=== PATIENT | male | born 1990 | race Caucasian/White ===

== ENCOUNTER 2019-09-13 04:46 | Emergency (ER) | payer MEDICAID, OTHER ==
[~2019-09-13] VITALS: Ht 185.4 cm; Wt 106.8 kg
[2019-09-13 04:49] VITALS: BP 147/62
[2019-09-13] MEDS ORDERED: famotidine 20mg tablet PO ONE (04:55)
[2019-09-13] MEDS ORDERED: ondansetron 4mg rapidly disintigrating tab PO ONE (04:55)
[2019-09-13] MEDS ORDERED: mag hydrox/Alum hydrox/simeth 30ml oral suspension PO ONE ×2 (04:55→05:20)
[2019-09-13] MEDS ORDERED: LIDOcaine Viscous 15ml cup MM ONE (04:55)
[2019-09-13] MEDS ORDERED: pantoprazole 40mg Tablet.DR PO ONE (05:20)
[2019-09-13] MEDS ORDERED: PANT-47 PO (05:20)
[2019-09-13] MEDS ORDERED: sucralfate 1gm/10ml UD suspension PO ONE (05:20)
== END 2019-09-13 05:38 | disposition home or self-care (01) ==
LOC: ER 04:46
DX: K29.00 Acute gastritis without bleeding (principal); Z79.899 Other long term (current) drug therapy
CPT/HCPCS: 93005; 99284

== ENCOUNTER 2020-04-27 21:11 | Emergency (ER) | payer MEDICAID, OTHER ==
[~2020-04-27 21:11] MED LIST: PANT-47 PO
== END 2020-04-27 22:23 | disposition left against medical advice (07) ==
LOC: ER 21:11
DX: R10.9 Unspecified abdominal pain (principal); Z53.21 Procedure and treatment not carried out due to patient leaving prior to being seen by health care provider

== ENCOUNTER 2020-07-22 19:56 | Emergency (ER) | payer MEDICAID, OTHER ==
[~2020-07-22] VITALS: Ht 185.4 cm; Wt 100.0 kg
[2020-07-22 20:07] VITALS: BP 124/82
[2020-07-22] MEDS ORDERED: mag hydrox/Alum hydrox/simeth 30ml oral suspension PO ONE (21:15)
[2020-07-22] MEDS ORDERED: LIDOcaine Viscous 15ml cup MM PRN (21:15)
[2020-07-22] MEDS ORDERED: ondansetron 4mg/5ml UD cup PO ONE (21:15)
[2020-07-22] MEDS ORDERED: ondansetron 4mg rapidly disintigrating tab PO ONE (22:00)
== END 2020-07-22 22:57 | disposition home or self-care (01) ==
LOC: ER 19:56
DX: R10.13 Epigastric pain (principal); K21.9 Gastro-esophageal reflux disease without esophagitis; Z79.899 Other long term (current) drug therapy
CPT/HCPCS: 71045; 99283; 99284

== ENCOUNTER 2021-05-24 00:31 | Emergency (ER) | payer MEDICAID ==
[~2021-05-24] VITALS: Ht 185.4 cm; Wt 75.0 kg
[2021-05-24] MEDS ORDERED: ondansetron/PF 4mg/2ml inj IV ONE ×2 (01:00→01:40)
[2021-05-24] MEDS ORDERED: sucralfate 1 gm tablet PO ONE (01:00)
[2021-05-24] MEDS ORDERED: LIDOcaine Viscous 15ml cup MM ONE (01:15)
[2021-05-24] MEDS ORDERED: mag hydrox/Alum hydrox/simeth 30ml oral suspension PO ONE (01:15)
[2021-05-24 01:33] LABS: BASOPHILS % (AUTO) 0.4 % (0-1); EOSINOPHILS # (AUTO) 0.1 X10'3 (0-0.9); EOSINOPHILS % (AUTO) 1.1 % (0-6); HEMATOCRIT 40.2 % (42.0-52.0); LYMPHOCYTES # (AUTO) 1.9 X10'3 (1.1-4.8); LYMPHOCYTES % (AUTO) 21.8 % (21-51); MEAN CORPUSCULAR HEMOGLOBIN 29.1 PG (27.0-31.0); MEAN CORPUSCULAR HGB CONC 34.8 g/dL (33.0-36.5); MEAN CORPUSCULAR VOLUME 83.7 FL (78-98); MEAN PLATELET VOLUME 9.5 FL (7.4-10.4); MONOCYTES # (AUTO) 0.8 X10'3 (0-0.9); MONOCYTES % (AUTO) 8.9 % (2-12); NEUTROPHILS % (AUTO) 67.8 % (42-75); PLATELET COUNT 212 X10'3 (140-440); RED BLOOD COUNT 4.81 X10'6 (4.70-6.10); RED CELL DISTRIBUTION WIDTH 12.4 % (11.5-14.5); WHITE BLOOD COUNT 8.8 X10'3 (4.5-11.0)
[2021-05-24] MEDS ORDERED: morphine 4 MG/ML inj SYRINge IV ONE (01:40)
[2021-05-24 01:48] LABS: ALANINE AMINOTRANSFERASE 24 U/L (12-78); ALBUMIN 4.1 G/DL (3.4-5.0); ALBUMIN/GLOBULIN RATIO 1.3 (1.1-1.5); ALKALINE PHOSPHATASE 68 IU/L (46-116); ANION GAP 9 (8-16); ASPARTATE AMINO TRANSFERASE 16 U/L (10-37); BILIRUBIN,DIRECT 0.1 MG/DL (0-0.3); BILIRUBIN,TOTAL 0.4 MG/DL (0.1-1.0); BLOOD UREA NITROGEN 18 MG/DL (7-18); BUN/CREATININE RATIO 21.4 (5.4-32.0); CALCIUM 8.5 MG/DL (8.5-10.1); CHLORIDE 106 MMOL/L (99-107); CREATININE 0.84 MG/DL (0.60-1.10); GLUCOSE 112 MG/DL (70-104); LIPASE 301 U/L (73-393); POTASSIUM 3.4 MMOL/L (3.5-5.1); SODIUM 144 MMOL/L (135-145); TOTAL CARBON DIOXIDE 29.3 MMOL/L (24-32); TOTAL PROTEIN 7.3 G/DL (6.4-8.2); eGFR > 90 ML/MIN
[2021-05-24] MEDS ORDERED: HYDR-3965 PO (02:21)
[2021-05-24] MEDS ORDERED: ketorolac trometh inj. 60 MG/2 ML VIAL IM ONE (02:45)
[2021-05-24] MEDS ORDERED: ketorolac tromethamine 15mg/ml inj. IM ONE (02:55)
[2021-05-24 03:03] VITALS: BP 117/57
== END 2021-05-24 03:04 | disposition home or self-care (01) ==
LOC: ER 00:31
DX: K80.80 Other cholelithiasis without obstruction (principal); R10.10 Upper abdominal pain, unspecified; R10.13 Epigastric pain; R07.89 Other chest pain; Z79.899 Other long term (current) drug therapy
CPT/HCPCS: 36415; 74176; 80048; 80076; 83690; 85025; 93005; 96372; 96374; 96375; 96376; 99285; J1885; J2270; J2405

== ENCOUNTER 2021-12-25 19:01 | Emergency (ER) | payer MEDICAID ==
[~2021-12-25] VITALS: Ht 185.4 cm; Wt 77.3 kg
[2021-12-25 19:55] LABS: BASOPHILS # (AUTO) 0.1 X10'3 (0-0.2); BASOPHILS % (AUTO) 0.7 % (0-1); EOSINOPHILS # (AUTO) 0.2 X10'3 (0-0.9); HEMATOCRIT 45.9 % (42.0-52.0); HEMOGLOBIN 15.5 g/dl (14.0-17.9); LYMPHOCYTES % (AUTO) 26.2 % (21-51); MEAN CORPUSCULAR HGB CONC 33.7 g/dL (33.0-36.5); MEAN CORPUSCULAR VOLUME 83.1 FL (78-98); MEAN PLATELET VOLUME 9.6 FL (7.4-10.4); MONOCYTES # (AUTO) 0.6 X10'3 (0-0.9); NEUTROPHILS # (AUTO) 4.8 X10'3 (1.8-7.7); NEUTROPHILS % (AUTO) 62.1 % (42-75); PLATELET COUNT 245 X10'3 (140-440); RED BLOOD COUNT 5.52 X10'6 (4.70-6.10); WHITE BLOOD COUNT 7.7 X10'3 (4.5-11.0)
[2021-12-25 20:19] LABS: ALANINE AMINOTRANSFERASE 31 U/L (12-78); ALBUMIN 4.3 G/DL (3.4-5.0); ALBUMIN/GLOBULIN RATIO 1.3 (1.1-1.5); ALKALINE PHOSPHATASE 82 IU/L (46-116); ANION GAP 10 (8-16); ASPARTATE AMINO TRANSFERASE 32 U/L (10-37); BILIRUBIN,TOTAL 0.6 MG/DL (0.1-1.0); BLOOD UREA NITROGEN 18 MG/DL (7-18); BUN/CREATININE RATIO 19.8 (5.4-32.0); CALCIUM 9.2 MG/DL (8.5-10.1); CHLORIDE 105 MMOL/L (99-107); CREATININE 0.91 MG/DL (0.60-1.10); GLUCOSE 110 MG/DL (70-104); SODIUM 146 MMOL/L (135-145); TOTAL CARBON DIOXIDE 31.1 MMOL/L (24-32); TOTAL PROTEIN 7.7 G/DL (6.4-8.2); eGFR > 90 ML/MIN
--- NOTE | 2021-12-25 23:13 | NUR ---
PT TOOK NORCO PRIOR TO COMING TO ER AND STATES IT HAS BROUGHT HIS PAIN DOWN FROM A 10 TO A 7. PT STATES HE TOOK IT ABOUT 4 HOURS AGO
[2021-12-26] MEDS ORDERED: LIDOcaine Viscous 15ml cup MM ONE (00:45)
[2021-12-26] MEDS ORDERED: famotidine 20mg tablet PO ONE (00:45)
[2021-12-26] MEDS ORDERED: mag hydrox/Alum hydrox/simeth 30ml oral suspension PO ONE (00:45)
[2021-12-26 01:52] VITALS: BP 105/62
== END 2021-12-26 02:19 | disposition home or self-care (01) ==
LOC: ER 19:02
DX: K21.9 Gastro-esophageal reflux disease without esophagitis (principal); Z79.899 Other long term (current) drug therapy
CPT/HCPCS: 36415; 71045; 80053; 83880; 84484; 85025; 93005; 99285

== ENCOUNTER 2022-11-08 17:47 | Inpatient (IN) | payer MEDICAID ==
[~2022-11-08] VITALS: Ht 185.4 cm; Wt 80.0 kg
[2022-11-08 18:21] LABS: BASOPHILS % (AUTO) 0.2 % (0-1); EOSINOPHILS % (AUTO) 0.1 % (0-6); HEMATOCRIT 39.5 % (42.0-52.0); HEMOGLOBIN 12.9 g/dl (14.0-17.9); LYMPHOCYTES # (AUTO) 0.5 X10'3 (1.1-4.8); LYMPHOCYTES % (AUTO) 4.7 % (21-51); MEAN CORPUSCULAR HGB CONC 32.7 g/dL (33.0-36.5); MEAN CORPUSCULAR VOLUME 79.6 FL (78-98); MEAN PLATELET VOLUME 7.9 FL (7.4-10.4); MONOCYTES # (AUTO) 0.5 X10'3 (0-0.9); MONOCYTES % (AUTO) 4.7 % (2-12); NEUTROPHILS # (AUTO) 9.2 X10'3 (1.8-7.7); NEUTROPHILS % (AUTO) 90.3 % (42-75); PLATELET COUNT 358 X10'3 (140-440); RED BLOOD COUNT 4.96 X10'6 (4.70-6.10); RED CELL DISTRIBUTION WIDTH 13.5 % (11.5-14.5); WHITE BLOOD COUNT 10.2 X10'3 (4.5-11.0)
[2022-11-08 18:32] LABS: ALANINE AMINOTRANSFERASE 17 U/L (12-78); ALBUMIN 3.3 G/DL (3.4-5.0); ALBUMIN/GLOBULIN RATIO 0.9 (1.1-1.5); ALKALINE PHOSPHATASE 78 IU/L (46-116); ANION GAP 6 (8-16); ASPARTATE AMINO TRANSFERASE 12 U/L (10-37); BILIRUBIN,TOTAL 0.3 MG/DL (0.1-1.0); BLOOD UREA NITROGEN 10 MG/DL (7-18); BUN/CREATININE RATIO 11.6 (10.0-20.0); CALCIUM 8.9 MG/DL (8.5-10.1); CHLORIDE 103 MMOL/L (99-107); CREATININE 0.86 MG/DL (0.60-1.10); GLUCOSE 125 MG/DL (70-104); LIPASE 135 U/L (73-393); POTASSIUM 4.3 MMOL/L (3.5-5.1); SODIUM 139 MMOL/L (135-145); TOTAL CARBON DIOXIDE 30.1 MMOL/L (24-32); eGFR > 90 ML/MIN
[2022-11-08] MEDS ORDERED: ondansetron/PF 4mg/2ml inj IV ONE (18:50)
[2022-11-08] MEDS ORDERED: normal saline 1000ml 1,000 ML IV ONE (18:50)
[2022-11-08] MEDS ORDERED: morphine 4 MG/ML inj SYRINge IV ONE (18:50)
--- NOTE | 2022-11-08 19:15 | NUR ---
US to pt bedside at this time
[2022-11-08 19:35] LABS: CLARITY,URINE CLEAR (Clear); COLOR,URINE YELLOW (Yellow); GLUCOSE, URINE NEGATIVE (Neg); KETONES,URINE 15 mg/dl (Neg); LEUKOCYTE ESTERASE ,URINE NEGATIVE (Neg); NITRITES, URINE NEGATIVE (Neg); OCCULT BLOOD,URINE NEGATIVE (Neg); PROTEIN,URINE NEGATIVE (Neg); UROBILINOGEN,URINE 0.2 E.U/dL (0.2-1.0)
[2022-11-08 19:41] LABS: UA COLLECTION TYPE CLN CATCH MIDSTREAM
[2022-11-08] MEDS ORDERED: morphine 4 MG/ML inj SYRINge IV PRN (19:55)
[2022-11-08] MEDS ORDERED: piperacillin/tazo 3.375gm/50ml 50 ML IV ONE (19:55)
[2022-11-08] MEDS ORDERED: metoclopramide 5 mg/ml inj IV PRN (20:20)
[2022-11-08] MEDS ORDERED: HYDROcodone/acetaminophen 5mg/325mg tablet PO PRN (20:20)
[2022-11-08] MEDS ORDERED: magnesium hydroxide 30ml (MOM) UD suspension PO PRN (20:20)
[2022-11-08] MEDS ORDERED: ondansetron/PF 4mg/2ml inj IV PRN (20:20)
[2022-11-08] MEDS ORDERED: acetaminophen 325mg tablet PO PRN ×2 (20:20)
[2022-11-08] MEDS ORDERED: morphine 2 MG/ML inj. syringe IV PRN ×2 (20:20)
[2022-11-08] MEDS ORDERED: mag hydrox/Alum hydrox/simeth 30ml oral suspension PO PRN (20:20)
[2022-11-08] MEDS ORDERED: HYDROcodone/acetaminophen 10/325mg tab PO PRN (20:20)
[2022-11-08] MEDS ORDERED: NO HOME MEDS (20:26)
[2022-11-08 20:30] VITALS: BP 125/60
--- NOTE | 2022-11-08 21:18 | NUR ---
Received report from Cristin MARTIN RN. Patient to follow shortly.
--- NOTE | 2022-11-08 21:25 | NUR ---
Patient arrived to floor via gurney. A&O and in no distress. Accompanied by his Mom.
[2022-11-08 21:30] VITALS: BP 125/60
[2022-11-09] VITALS (13 sets, daily range): BP systolic 93–136; BP diastolic 44–71
[2022-11-09] MEDS: normal saline 1000ml 1,000 ML IV SCH ×2 (01:46→11:07)
--- NOTE | 2022-11-09 06:30 | NUR ---
Problems reprioritized. Patient report given, questions answered & plan of care reviewed with Ashley RASHID.
--- NOTE | 2022-11-09 07:04 | NUR ---
Patient in room [id number]. I have received report from Gina RASHID and had the opportunity to ask questions and assume patient care.
[2022-11-09 07:07] LABS: BASOPHILS % (AUTO) 0.4 % (0-1); EOSINOPHILS # (AUTO) 0.1 X10'3 (0-0.9); EOSINOPHILS % (AUTO) 2.2 % (0-6); HEMATOCRIT 35.2 % (42.0-52.0); HEMOGLOBIN 11.7 g/dl (14.0-17.9); LYMPHOCYTES # (AUTO) 1.5 X10'3 (1.1-4.8); LYMPHOCYTES % (AUTO) 22.3 % (21-51); MEAN CORPUSCULAR HEMOGLOBIN 26.5 PG (27.0-31.0); MEAN CORPUSCULAR HGB CONC 33.3 g/dL (33.0-36.5); MEAN CORPUSCULAR VOLUME 79.6 FL (78-98); MEAN PLATELET VOLUME 8.6 FL (7.4-10.4); MONOCYTES # (AUTO) 1.1 X10'3 (0-0.9); MONOCYTES % (AUTO) 15.8 % (2-12); NEUTROPHILS # (AUTO) 4.1 X10'3 (1.8-7.7); NEUTROPHILS % (AUTO) 59.3 % (42-75); PLATELET COUNT 298 X10'3 (140-440); RED BLOOD COUNT 4.43 X10'6 (4.70-6.10); RED CELL DISTRIBUTION WIDTH 13.6 % (11.5-14.5); WHITE BLOOD COUNT 6.9 X10'3 (4.5-11.0)
[2022-11-09 07:33] LABS: ALANINE AMINOTRANSFERASE 15 U/L (12-78); ALBUMIN 2.6 G/DL (3.4-5.0); ALBUMIN/GLOBULIN RATIO 0.8 (1.1-1.5); ALKALINE PHOSPHATASE 63 IU/L (46-116); ANION GAP 6 (8-16); ASPARTATE AMINO TRANSFERASE 16 U/L (10-37); BILIRUBIN,TOTAL 0.3 MG/DL (0.1-1.0); BLOOD UREA NITROGEN 7 MG/DL (7-18); BUN/CREATININE RATIO 7.7 (10.0-20.0); CALCIUM 8.4 MG/DL (8.5-10.1); CHLORIDE 105 MMOL/L (99-107); CREATININE 0.91 MG/DL (0.60-1.10); GLUCOSE 89 MG/DL (70-104); POTASSIUM 3.9 MMOL/L (3.5-5.1); SODIUM 141 MMOL/L (135-145); TOTAL CARBON DIOXIDE 29.6 MMOL/L (24-32); TOTAL PROTEIN 5.8 G/DL (6.4-8.2); eGFR > 90 ML/MIN
[2022-11-09] MEDS ORDERED: docusate sod 100mg capsule PO SCH (08:00)
[2022-11-09 08:22] LABS: MICROCYTOSIS 1+; PLATELET ESTIMATE NORMAL; TOTAL CELLS COUNTED 100
[2022-11-09] MEDS ORDERED: INDOCYANINE GREEN 25 MG/10 ML VIAL IV ONE (09:35)
[2022-11-09] MEDS ORDERED: LIDOcaine 1% (10mg/ml)w/preservative inj. 20ml MDV ONE (12:15)
[2022-11-09] MEDS ORDERED: BUPIVAcaine/PF 2.5 mg/ml (0.25%) 30ml vial ONE (12:15)
[2022-11-09] MEDS ORDERED: meperidine/PF 25mg/ml syringe IV PRN ×3 (12:35)
[2022-11-09] MEDS ORDERED: acetaminophen 1,000mg/100ml IV 100 ML IV PRN (12:35)
[2022-11-09] MEDS ORDERED: morphine 4 MG/ML inj SYRINge IV PRN (12:35)
[2022-11-09] MEDS ORDERED: hydrALAZINE 20mg/ml inj. IV PRN (12:35)
[2022-11-09] MEDS ORDERED: labetalol 20mg/4ml (5mg/ml) syringe IV PRN (12:35)
[2022-11-09] MEDS ORDERED: ketorolac trometh. 30mg/ml inj. IV ONE (12:35)
[2022-11-09] MEDS ORDERED: proCHLORperazine 10 MG/2 ml inj IV PRN (12:35)
[2022-11-09] MEDS ORDERED: ondansetron/PF 4mg/2ml inj IV PRN (12:35)
[2022-11-09] MEDS ORDERED: morphine 2 MG/ML inj. syringe IV PRN (12:35)
[2022-11-09] MEDS ORDERED: ringers solution, lacted 1,000 ML IV SCH (12:35)
--- NOTE | 2022-11-09 12:45 | NUR ---
Patient medicated x1 for pain 01/16, with good result. patient prepared for surgery taken down 1245hrs.
[2022-11-09] MEDS ORDERED: midazolam 1 mg/ML 2ml injection ONE (13:32)
[2022-11-09] MEDS ORDERED: fentaNYL /PF 50mcg/ml 5ml ampule ONE (13:33)
[2022-11-09] MEDS ORDERED: ceFAZolin 1000mg inj ONE ×2 (13:53)
[2022-11-09] MEDS ORDERED: propofol inj 20 ML IV ONE (13:53)
[2022-11-09] MEDS ORDERED: rocuronium 10mg/ml inj IV ONE (13:53)
[2022-11-09] MEDS ORDERED: LIDOcaine 2% (20mg/ml) 5ml vial ONE (13:54)
[2022-11-09] MEDS ORDERED: dexamethasone sod phosphate 4mg/ml inj. ONE (13:55)
[2022-11-09] MEDS ORDERED: ondansetron/PF 4mg/2ml inj ONE (13:55)
[2022-11-09] MEDS ORDERED: neostigmine methylsulfate 1 MG/ML 10ml vial ONE (14:33)
[2022-11-09] MEDS ORDERED: glycopyrrolate 0.2mg/ml inj ONE (14:33)
[2022-11-09] MEDS ORDERED: naloxone 0.4 mg/ml inj IV PRN (14:55)
[2022-11-09] MEDS ORDERED: HYDROcodone/acetaminophen 5mg/325mg tablet PO PRN (14:55)
[2022-11-09] MEDS ORDERED: HYDROcodone/acetaminophen 10/325mg tab PO PRN (14:55)
--- NOTE | 2022-11-09 15:47 | NUR ---
PATIENT HAS MET ALL CRITERIA FOR TRANSFER TO ORTHO FLOOR. VSS. DRESSINGS INTACT. BED LOW, CALL LIGHT PRESENT AND 2 RAILS UP. RN PRESENT TO ACCEPT CARE OF PATIENT AND REPORT HAS BEEN CALLED. ALL QUESTIONS ANSWERED TO ACCEPTING RN. Addendum: 11/09/22 at 1553 by Benigno Stewart RN Amended: Links added.
--- NOTE | 2022-11-09 16:31 | NUR ---
Patient in room ORTH[facility] 4013. I have received report from Mitchell RASHID and had the opportunity to ask questions and assume patient care.No c/o pain on arrival. VSS. will continue to monitor
[2022-11-09 17:28] LABS: BASOPHILS % (AUTO) 0.2 % (0-1); EOSINOPHILS % (AUTO) 0.4 % (0-6); HEMATOCRIT 35.5 % (42.0-52.0); HEMOGLOBIN 11.8 g/dl (14.0-17.9); LYMPHOCYTES # (AUTO) 0.5 X10'3 (1.1-4.8); LYMPHOCYTES % (AUTO) 6.6 % (21-51); MEAN CORPUSCULAR HEMOGLOBIN 26.4 PG (27.0-31.0); MEAN CORPUSCULAR HGB CONC 33.1 g/dL (33.0-36.5); MEAN CORPUSCULAR VOLUME 79.6 FL (78-98); MEAN PLATELET VOLUME 8.4 FL (7.4-10.4); MONOCYTES # (AUTO) 0.2 X10'3 (0-0.9); NEUTROPHILS # (AUTO) 7.5 X10'3 (1.8-7.7); NEUTROPHILS % (AUTO) 90.8 % (42-75); PLATELET COUNT 265 X10'3 (140-440); RED BLOOD COUNT 4.46 X10'6 (4.70-6.10); RED CELL DISTRIBUTION WIDTH 13.6 % (11.5-14.5); WHITE BLOOD COUNT 8.2 X10'3 (4.5-11.0)
[2022-11-09] MEDS ORDERED: ACET-1008 PO (17:50)
[2022-11-09] MEDS ORDERED: OMEP20CA15 PO (17:51)
[2022-11-09] MEDS ORDERED: IBUP-1985 PO (18:04)
--- NOTE | 2022-11-09 18:39 | NUR ---
Patient in room ORTH[facility] 4013. I have received report from GAY Ramirez and had the opportunity to ask questions and assume patient care.
--- NOTE | 2022-11-09 18:40 | NUR ---
patient is for discharge, discharge packet given to patient. Patient has active bowel sounds has not passed gas yet. No c/o pain. Report given to Marcelle ARTEAGA
--- NOTE | 2022-11-09 18:45 | NUR ---
Pt walked two laps around the unit, no current complaints.
--- NOTE | 2022-11-09 19:51 | NUR ---
DC instructions were provided to the Pt. Iv was discharged. Pt did not appear to be in any distress. He verbalized his understanding of the teachings of the medication, and followup teachings. Pt was wheeled down to the parking lot, and was loaded up in his mothers car, in no apparent distress.
== END 2022-11-09 19:28 | disposition home or self-care (01) | DRG 263 ==
LOC: ER 17:48 → ED HOLD 20:22 → SUR 3N 21:22 → ORTHO 4S 11-09 11:13
PROVIDERS: ADMIT Internal Medicine; ATTEND Internal Medicine
PROC: BF532Z0 Other Imaging of Gallbladder and Bile Ducts using Fluorescing Agent, Intraoperative (ICD-10-PCS; 2022-11-09)
PROC: 8E0W4CZ Robotic Assisted Procedure of Trunk Region, Percutaneous Endoscopic Approach (ICD-10-PCS; 2022-11-09)
PROC: 0FT44ZZ Resection of Gallbladder, Percutaneous Endoscopic Approach (ICD-10-PCS; principal; 2022-11-09 13:31)
DX: K80.63 Calculus of gallbladder and bile duct with acute cholecystitis with obstruction (principal); Z79.899 Other long term (current) drug therapy
CPT/HCPCS: 36415; 76700; 80053; 81003; 82948; 83690; 84145; 85007; 85025; 87081; 99285; G0378; J0690; J1100; J1885; J2175; J2250; J2270; J2405; J2543; J2704; J2710; J3010; J3490; J7030